=== PATIENT | female | born 1995 | race Caucasian/White ===

== ENCOUNTER 2021-02-08 18:50 | Emergency (ER) | payer BC ==
[2021-02-08] MEDS ORDERED: Proparacaine 0.5% Opth 15 ML BOT ONE (19:03)
[2021-02-08] MEDS ORDERED: diphenhydrAMINE 25 MG CAP ONE (19:07)
[2021-02-08] MEDS ORDERED: Fluorescein Opthalmic Strip ONE ×2 (19:27)
== END 2021-02-08 21:02 | disposition home or self-care (01) ==
LOC: ERS 18:50
DX: S05.02XA Injury of conjunctiva and corneal abrasion without foreign body, left eye, initial encounter (principal); S05.01XA Injury of conjunctiva and corneal abrasion without foreign body, right eye, initial encounter; H11.423 Conjunctival edema, bilateral; I10 Essential (primary) hypertension; X58.XXXA Exposure to other specified factors, initial encounter
CPT/HCPCS: 99283